=== PATIENT | male | born 1995 | race American Indian/Alaskan Native ===

== ENCOUNTER 2018-08-01 17:24 | Emergency (ER) | payer SELFPAY ==
[2018-08-01 17:39] VITALS: BP 133/90
--- NOTE | 2018-08-01 18:21 | Emergency Department Report ---
ED Male HPI - General Chief complaint: Urogenital-Male Stated complaint: IRRITATION DURING INTERCOURSE Time Seen by Provider: 08/01/18 18:09 Source: patient Mode of arrival: Ambulatory Limitations: No Limitations - History of Present Illness Initial comments: This is a 23-year-old male nontoxic, well nourished in appearance, no acute signs of distress presents to the ED with c/o of penile irritation and redness. Patient stated that he changed to a new condom and started to have sexual intercourse and condom started him to have itching. Patient denies any testicular pain or swelling. Patient denies any penile ulcers or lesions. Patient denies any penile discharge. Denies any concerns about STD. Patient denies any nausea, vomiting, chest pain, shortness of breathe, fever, chills, headache, back pain, numbness, tingling, stiff neck. Patient denies any urinary symptoms. Patient denies any allergies or PMH. -: This evening Location: penis Radiation: none Severity scale (0 -10): 0 Improves with: none Worsens with: none denies other symptoms. denies: discharge, swelling, mass, rash, urinary retention, blood in urine, dysuria, fever, nausea/vomiting, incontinence - Related Data Sexually active: Yes Allergies Allergy/AdvReac Type Severity Reaction Status Date / Time No Known Allergies Allergy Unverified 08/01/18 17:39 ED Review of Systems ROS: Stated complaint: IRRITATION DURING INTERCOURSE Other details as noted in HPI Constitutional: denies: chills, fever Eyes: denies: eye pain, eye discharge, vision change ENT: denies: ear pain, throat pain Respiratory: denies: cough, shortness of breath, wheezing Cardiovascular: denies: chest pain, palpitations Endocrine: no symptoms reported Gastrointestinal: denies: abdominal pain, nausea, diarrhea Genitourinary: denies: urgency, dysuria Musculoskeletal: denies: back pain, joint swelling, arthralgia Skin: denies: rash, lesions Neurological: denies: headache, weakness, paresthesias Psychiatric: denies: anxiety, depression Hematological/Lymphatic: denies: easy bleeding, easy bruising ED Past Medical Hx - Past Medical History Previous Medical History?: No - Surgical History Additional Surgical History: left wrist - Social History Smoking Status: Never Smoker Substance Use Type: Marijuana ED Physical Exam - General Limitations: No Limitations General appearance: alert, in no apparent distress - Head Head exam: Present: atraumatic, normocephalic - Extremities Exam Extremities exam: Present: normal inspection, full ROM - Back Exam Back exam: Present: normal inspection, full ROM - Neurological Exam Neurological exam: Present: alert, oriented X3 - Psychiatric Psychiatric exam: Present: normal affect, normal mood - Skin Skin exam: Present: warm, dry, intact, normal color. Absent: rash ED Course Vital Signs 08/01/18 17:35 Temperature 98.9 F Pulse Rate 93 H Respiratory 18 Rate Blood Pressure 133/90 O2 Sat by Pulse 100 Oximetry - Reevaluation(s) Reevaluation #1: 08/01/18 18:20 Patient is speaking in full sentences with no signs of distress noted. ED Medical Decision Making - Medical Decision Making 23-year-old male that presents with possible allergic reaction to latex from condoms. Patient was educated to avoid latex and try using nonlatex condoms. No anaphylactic reaction noted. Critical care attestation.: If time is entered above; I have spent that time in minutes in the direct care of this critically ill patient, excluding procedure time. ED Disposition Clinical Impression: Allergic reaction Qualifiers: Encounter type: initial encounter Qualified Code(s): T78.40XA - Allergy, unspecified, initial encounter Disposition: - TO HOME OR SELFCARE Is pt being admited?: No Does the pt Need Aspirin: No Condition: Stable Instructions: Latex Allergy (ED) Additional Instructions: Follow-up with a primary care doctor in 3-5 days or if symptoms worsen and continue return to emergency room as soon as possible. Referrals: PRIMARY CAREMD [Referring] - 3-5 Days JOSEPH JOSEPH MD [Staff Physician] - 3-5 Days [facility] [Outside] - 3-5 Days
== END 2018-08-01 18:34 | disposition home or self-care (01) ==
LOC: ED 17:24
DX: T78.40XA Allergy, unspecified, initial encounter (principal); F12.10 Cannabis abuse, uncomplicated; X58.XXXA Exposure to other specified factors, initial encounter
CPT/HCPCS: 99282

== ENCOUNTER 2019-07-17 14:11 | Emergency (ER) | payer SELFPAY | END 2019-07-17 17:40 | disposition home or self-care (01) | LOC: ED 14:11 ==